=== PATIENT | male | born 1975 | race Caucasian/White ===

== ENCOUNTER 2020-06-24 19:31 | Emergency (ER) | payer SELFPAY ==
[~2020-06-24] VITALS: Ht 177.8 cm; Wt 145.5 kg
[2020-06-24 19:35] VITALS: TEMP 97.7
[2020-06-24] MEDS ORDERED: AKTOB 5 ML5 ML OP (19:49)
[2020-06-24 20:37] VITALS: BP 135/84; PULSE 80
== END 2020-06-24 20:37 | disposition home or self-care (01) ==
LOC: COL.ER 19:31
DX: H10.9 Unspecified conjunctivitis (principal); Z88.0 Allergy status to penicillin